=== PATIENT | female | born 1960 ===

== ENCOUNTER 2021-12-12 12:14 | Outpatient (CLI) | payer OTHER ==
[~2021-12-12 12:14] MED LIST: AFRIN SPRAY15 ML NS; AMOX1TAB12 PO; AYR SALINE NA14.1 GM NASAL
== END 2021-12-12 12:16 | disposition home or self-care (01) ==
LOC: SONOGRAMA 12:14
PROVIDERS: ATTEND Surgery
DX: Z85.3 Personal history of malignant neoplasm of breast (principal)

== ENCOUNTER 2022-03-22 15:00 | Outpatient (CLI) | payer OTHER | END 2022-03-22 16:14 | disposition home or self-care (01) | LOC: ASH CLINIC 15:00 | PROVIDERS: ATTEND General Practice | DX: U07.1 COVID-19 (principal) ==